=== PATIENT | male | born 1965 | race Caucasian/White ===

== ENCOUNTER 2019-11-03 08:19 | Emergency (ER) | payer BC ==
--- NOTE | 2019-11-03 08:44 | EDM.PDOC ---
ED HPI GENERAL MEDICAL PROBLEM - General Chief Complaint: Lower Extremity Injury/Pain Stated Complaint: LT KNEE INJURY Time Seen by Provider: 11/03/19 08:24 - History of Present Illness INITIAL COMMENTS - FREE TEXT/NARRATIVE: History of present illness: 54-year-old male presenting with left knee pain/injury just prior to arrival here. Apparently he was playing basketball when he was hit on the left side of his knee and suddenly felt a pop and pain. He thought he noticed the patella appeared displaced. His friends got him into a wheelchair and he was able to get home and put in a brace and apply ice to the area. He reports his pain is well controlled with immobilization but still feels that his patella is out of place. Review of systems: As per history of present illness and below otherwise all systems reviewed and negative. Past medical history: As per history of present illness and as reviewed below otherwise noncontributory. Surgical history: As per history of present illness and as reviewed below otherwise noncontributory. Right knee ACL repair Social history: No reported history of drug or alcohol abuse. No tobacco Family history: As per history of present illness and as reviewed below otherwise noncontributory. Physical exam: GEN: no acute distress, well appearing HEENT: Atraumatic, normocephalic, mucous membranes moist Neck: supple, nontender, trachea midline. Lungs: No respiratory distress. Heart: RRR Extremities: Left knee tender to palpation, wrapped in Alvaro wrap with ice bag. Dressing taken down. Pain with range of motion. Worst with bending of the knee. The pain improves with straightening, although he is unable to fully extend the knee actively, passive extension fully intact. Patella is minimally tender to palpation. There is a palpable defect distal to the patella, suspect patellar tendon rupture/tear. No patellar lateral dislocation, though the patella is high riding on palpation. No palpable patellar fracture. Valgus and varus stress with no ligamentous laxity. Anterior/posterior drawer with no excess laxity. Neurovascularly intact. Neuro: Awake, alert, oriented. Neuro Exam nonfocal. Skin: warm, dry, no lesions Diagnostics: X-ray left knee Therapeutics: Patient declined pain medications. Placed in knee immobilizer and crutches. MDM: Impression: Left patellar tendon rupture Plan: Knee immobilizer, crutches, orthopedic referral Definitive disposition and diagnosis as appropriate pending reevaluation and review of above. - Related Data Allergies Allergy/AdvReac Type Severity Reaction Status Date / Time No Known Allergies Allergy Verified 11/03/19 08:35 Home Meds: Home Meds Amphetamine/Dextroamphetamine [Adderall] 11/03/19 [History] amLODIPine [Norvasc] 11/03/19 [History] Review of Systems - Review of Systems Review Of Systems: See Below (See HPI) ED EXAM, GENERAL - Physical Exam Exam: See Below (See HPI) Course - Vital Signs Text/Narrative:: Left knee patellar tendon rupture. DME placed on this patient: Left knee immobilizer, Alvaro wrap underneath immobilizer on the left knee, both for indication of patellar tendon rupture and crutches. Crutch teaching also given. Last Recorded V/S: Last Vital Signs Temp 96.9 F 11/03/19 08:33 Pulse 55 L 11/03/19 08:33 Resp 18 11/03/19 08:33 BP 137/82 11/03/19 08:33 Pulse Ox 97 11/03/19 08:33 - Orders/Labs/Meds Orders: Active Orders 24 hr Category Date Time Status DME for Discharge [COMM] Stat Oth 11/03/19 09:13 Ordered DME for Discharge [COMM] Stat Oth 11/03/19 09:59 Ordered - Re-Assessments/Exams Free Text/Narrative Re-Assessment/Exam: 11/03/19 09:34 X-ray confirms high riding patella, likely patellar tendon injury. He will be placed in knee immobilizer. Will discuss case with orthopedic surgeon at [facility]. 11/03/19 09:[address] Santos, orthopedic surgeon at [facility], who agrees patient does not need emergent transfer at this time but can be discharged home and treated outpatient, and he will see the patient in office in the next 2 to 3 days. He will let the office know that this patient will need to be fit in [facility]. Agrees with plan for knee immobilizer and crutches. Departure - Departure Time of Disposition: 09:46 Disposition: Home, Self-Care 01 Clinical Impression: Patella josefina Patellar tendon rupture Qualifiers: Encounter type: initial encounter Laterality: left Qualified Code(s): S86.812A - Strain of other muscle(s) and tendon(s) at lower leg level, left leg, initial encounter - Discharge Information Instructions: Crutch Use, Adult, [id number], How to Use Cold Therapy, [id number], How to Use a Knee Immobilizer, [id number], Patellar Tendon Tear Referrals: Javier Menendez MD [Primary Care Provider] - Kishore Kang MD [Ordering Only Provider] - 2 Days (Please call the orthopedic office as soon as possible to be fit into schedule an appointment. I have discussed with the orthopedic surgeon who will notify the office that you will need to be fit in as soon as possible.) Forms: ED Department Discharge Additional Instructions: Please keep the knee immobilizer on at all times. Please use the crutches to avoid any weightbearing on your left knee. Please call the orthopedic surgeon, Dr. Fink, listed above for follow-up soon as possible. You may apply ice to the knee, 20 minutes at a time 3-4 times a day making sure the ice does not touch the skin directly. You will possibly need surgery to repair this tendon injury. Please also take Tylenol or ibuprofen or alternate both for pain control. Keep the knee elevated as much as possible to minimize swelling. Return to the emergency department if you have any severe or worsening pain or any numbness or tingling of the leg. The following information is given to patients seen in the emergency department who are being discharged to home. This information is to outline your options fo r follow-up care. We provide all patients seen in our emergency department with a follow-up referral. The need for follow-up, as well as the timing and circumstances, are variable depending upon the specifics of your emergency department visit. If you don't have a primary care physician on staff, we will provide you with a referral. We always advise you to contact your personal physician following an emergency department visit to inform them of the circumstance of the visit and for follow-up with them and/or the need for any referrals to a consulting specialist. The emergency department will also refer you to a specialist when appropriate. This referral assures that you have the opportunity for follow-up care with a specialist. All of these measure are taken in an effort to provide you with optimal care, which includes your follow-up. Under all circumstances we always encourage you to contact your private physician who remains a resource for coordinating your care. When calling for follow-up care, please make the office aware that this follow-up is from your recent emergency room visit. If for any reason you are refused follow-up, please contact the [facility] Emergency Department at and asked to speak to the emergency department charge nurse. Sepsis Event Note (ED) - Evaluation Sepsis Screening Result: No Definite Risk - Focused Exam Vital Signs: Vital Signs Temp Pulse Resp BP Pulse Ox 11/03/19 08:33 96.9 F 55 L 18 137/82 97 - My Orders Last 24 Hours: My Active Orders 11/03/19 09:13 DME for Discharge [COMM] Stat 11/03/19 09:59 DME for Discharge [COMM] Stat - Assessment/Plan Last 24 Hours: My Active Orders 11/03/19 09:13 DME for Discharge [COMM] Stat 11/03/19 09:59 DME for Discharge [COMM] Stat
--- NOTE | 2019-11-03 09:23 | CR ---
Left knee: AP, lateral and sunrise patellar views of the left knee were obtained. Comparison: No previous knee study. Mild medial joint space narrowing is seen. Slight spurring of the intercondylar notch as well as off the anterior tibial spines. Joint space narrowing is noted within the patellofemoral joint. No joint effusion is seen. Patella is slightly subluxed in a superior direction. No acute fracture or other bony abnormality is appreciated. Impression: 1. Slightly subluxed patella superiorly. This may relate to degenerative change but please correlate that there is no injury to the patellar ligament. If any further clinical questions remain, MRI would then be needed. 2. Degenerative change as noted above. No acute fracture is appreciated. Diagnostic code #3 This report was dictated in MDT
== END 2019-11-03 10:15 | disposition home or self-care (01) ==
LOC: MW.ED 08:19
DX: S76.112A Strain of left quadriceps muscle, fascia and tendon, initial encounter (principal); W22.8XXA Striking against or struck by other objects, initial encounter; Y93.67 Activity, basketball
CPT/HCPCS: 73562-26-LT; 73562-LT; 99283

== ENCOUNTER 2023-06-09 00:04 | Emergency (ER) | payer SELFPAY | END 2023-06-09 00:25 | LOC: MW.ED 00:04 | DX: I10 Essential (primary) hypertension (principal); Z79.899 Other long term (current) drug therapy | CPT/HCPCS: 99283 ==